=== PATIENT | female | born 2005 | race African-American/Black ===

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

== ENCOUNTER 2024-02-11 14:29 | Emergency (ER) | payer SELFPAY ==
[2024-02-11 15:21] VITALS: BP 113/70; PULSE 96; RESP 18; TEMP 98.8; BMI 29.0
== END 2024-02-11 17:07 | disposition home or self-care (01) ==
LOC: JER 14:29
DX: K92.1 Melena (principal); R19.4 Change in bowel habit
CPT/HCPCS: 82272; 99283-25

== ENCOUNTER 2025-01-23 09:10 | Emergency (ER) | payer OTHER ==
[2025-01-23 09:20] VITALS: BP 143/80; RESP 20; TEMP 98.7; BMI 26.2
[2025-01-23] MEDS ORDERED: diphenhydrAMINE HCL 25 MG CAPSULE (FP) PO ONE (09:29)
[2025-01-23] MEDS ORDERED: LORATADINE 10 MG TABLET ONE (09:58)
[2025-01-23 10:01] VITALS: PULSE 120
[2025-01-23] MEDS: LORATADINE 10 MG TABLET PO ONE (10:05)
[2025-01-23] MEDS: HYDROCORTISONE 1% TOPICAL CREAM 30 GM TUBE TP ONE (10:19)
== END 2025-01-23 11:15 | disposition home or self-care (01) ==
LOC: JER 09:10
DX: L50.0 Allergic urticaria (principal); L29.9 Pruritus, unspecified; R21 Rash and other nonspecific skin eruption; R00.0 Tachycardia, unspecified; T78.40XA Allergy, unspecified, initial encounter
CPT/HCPCS: 99283-25